=== PATIENT | female | born 1955 | race Two or more races ===

== ENCOUNTER → 2024-04-17 | Outpatient (CLI) | payer OTHER, SELFPAY ==
[2024-04-17 11:15] LABS: Collection Type, Urine Clean Catch
[2024-04-17 11:43] LABS: Basophils # (Auto) 0.1 Thou/mm3 (0.0-0.2); Basophils % (Auto) 1 % (0-2.5); Eosinophils # (Auto) 0.3 Thou/mm3 (0.0-0.5); Eosinophils % (Auto) 4 % (0-10); Hematocrit 40.4 % (36.0-46.0); Hemoglobin 13.1 g/dL (12.0-16.0); Immature Granulocytes % (Auto) 1 % (0-0); Immature Granulocytes Auto 0.04 Thou/mm3 (0.00-0.00); Lymphocytes # (Auto) 2.8 Thou/mm3 (1.0-4.8); Lymphocytes % (Auto) 32 % (10-50); Mean Corpuscular HGB Conc 32.4 g/dl (31.0-37.0); Mean Corpuscular Hemoglobin 27.8 pg (25.0-35.0); Mean Corpuscular Volume 86 fL (80-100); Monocytes # (Auto) 0.6 Thou/mm3 (0.0-0.8); Monocytes % (Auto) 7 % (0-12); Neutrophils # (Auto) 4.9 Thou/mm3 (1.8-7.7); Neutrophils % (Auto) 56 % (37-80); Nucleated Red Blood Cell % 0 /100 WBC (0); Platelet Count 399 Thou/mm3 (140-440); RDW Standard Deviation 41.9 fL (36.4-46.3); Red Blood Count 4.71 Miln/mm3 (4.00-5.20); White Blood Count 8.7 Thou/mm3 (3.6-11.0)
[2024-04-17 11:47] LABS: Creatinine MALB Rnd Ur 171 mg/dL (30-125); Microalbumin Creat Ratio 6 mg/gCrea (<30); Microalbumin, Random Urine 10 mg/L (0-300)
[2024-04-17 12:04] LABS: Bacteria,Urine 3+; Bilirubin,Urine Negative (Negative); Blood,Urine Negative (Negative); Color,Urine Yellow (Lt Yel-Yel); Glucose, Urine Negative (Negative); Hyaline Casts,Urine < 1 /hpf (0-1); Ketones,Urine Negative (Negative); Leukocyte Esterase,Urine Positive (Negative); Nitrite,Urine Positive (Negative); PH,Urine 5.5 (5.0-7.0); Protein,Urine Trace (Neg - Trace); RBC,Urine 5 /hpf (0-3); Specific Gravity,Urine 1.023 (1.001-1.035); Squamous Epithelial Cell,Urine 34 /hpf (0-5); Transitional Epi Cells,Urine 2 /hpf (0-5); Urobilinogen,Urine Negative mg/dL (0.0-1.0); WBC,Urine 67 /hpf (0-5)
[2024-04-17 12:09] LABS: Glucose Estimated Average 220 mg/dL (80-131); Hemoglobin A1C 9.3 % Hgb (4.8-6.0)
[2024-04-17 12:11] LABS: Alanine Aminotransferase 17 U/L (10-49); Albumin, Serum 4.8 gm/dL (3.4-4.8); Albumin/Globulin Ratio 2.1 (1.2-2.2); Alkaline Phosphatase 96 U/L (46-116); Anion Gap 8 (7-16); Aspartate Amino Transferase 17 U/L (0-34); BUN/Creatinine Ratio 20 Ratio (12-20); Blood Urea Nitrogen 20 mg/dL (9-23); Calcium 10.1 mg/dL (8.3-10.6); Calcium (Corrected) 10.1 mg/dL (8.5-10.1); Cardiac Risk Estimate 2.3 RATIO (3.7-5.6); Chloride 105 mMol/L (98-107); Cholesterol 154 mg/dL (132-200); Globulin 2.3 gm/dL (2.3-3.5); Glucose 197 mg/dL (74-106); HDL Cholesterol 67 mg/dL (40-60); LDL Cholesterol,Calculated 63 mg/dL (0-130); Osmolality,Calculated 285 (275-295); Potassium 5.4 mMol/L (3.4-5.1); Sodium 139 mMol/L (136-145); Total Protein 7.1 gm/dL (5.7-8.2); Triglycerides 119 mg/dL (30-150); eGFR > 60 See Note
[2024-04-17 12:17] LABS: Clarity,Urine Hazy (Clear/Hazy)
[2024-04-17 12:27] LABS: Bilirubin,Total 0.5 mg/dL (0.3-1.2)
== END | disposition home or self-care (01) ==
PROVIDERS: PCP Family Medicine; Referring Provider Family Medicine; Visit Provider Family Medicine
DX: E11.65 Type 2 diabetes mellitus with hyperglycemia (principal)
CPT/HCPCS: 36415; 80053; 80061; 81001; 82043; 82570; 83036; 85025

== ENCOUNTER → 2024-12-16 | Outpatient (CLI) | payer OTHER, SELFPAY ==
[2024-12-16 12:11] LABS: Basophils # (Auto) 0.0 Thou/mm3 (0.0-0.2); Basophils % (Auto) 0 % (0-2.5); Eosinophils # (Auto) 0.1 Thou/mm3 (0.0-0.5); Eosinophils % (Auto) 1 % (0-10); Hematocrit 44.4 % (36.0-46.0); Hemoglobin 14.3 g/dL (12.0-16.0); Immature Granulocytes Auto 0.04 Thou/mm3 (0.00-0.00); Lymphocytes # (Auto) 2.9 Thou/mm3 (1.0-4.8); Lymphocytes % (Auto) 28 % (10-50); Mean Corpuscular HGB Conc 32.2 g/dl (31.0-37.0); Mean Corpuscular Hemoglobin 28.1 pg (25.0-35.0); Mean Corpuscular Volume 87 fL (80-100); Monocytes # (Auto) 0.7 Thou/mm3 (0.0-0.8); Monocytes % (Auto) 7 % (0-12); Neutrophils # (Auto) 6.5 Thou/mm3 (1.8-7.7); Neutrophils % (Auto) 63 % (37-80); Nucleated Red Blood Cell # 0.00 Thou/mm3 (0.00-0.00); Nucleated Red Blood Cell % 0 /100 WBC (0); Platelet Count 408 Thou/mm3 (140-440); RDW Standard Deviation 42.5 fL (36.4-46.3); Red Blood Count 5.09 Miln/mm3 (4.00-5.20); White Blood Count 10.2 Thou/mm3 (3.6-11.0)
[2024-12-16 12:31] LABS: Sed Rate (ESR) 15 mm/hr (0-30)
[2024-12-16 13:35] LABS: Glucose Estimated Average 341 mg/dL (80-131); Hemoglobin A1C 13.5 % Hgb (4.8-6.0)
[2024-12-16 13:40] LABS: Alanine Aminotransferase 18 U/L (10-49); Albumin, Serum 4.7 gm/dL (3.4-4.8); Albumin/Globulin Ratio 1.7 (1.2-2.2); Alkaline Phosphatase 99 U/L (46-116); Anion Gap 15 (7-16); Aspartate Amino Transferase 21 U/L (0-34); BUN/Creatinine Ratio 14 Ratio (12-20); Bilirubin,Total 0.5 mg/dL (0.3-1.2); Blood Urea Nitrogen 14 mg/dL (9-23); Calcium 10.3 mg/dL (8.3-10.6); Calcium (Corrected) 10.3 mg/dL (8.5-10.1); Carbon Dioxide 21.5 mMol/L (20.0-31.0); Chloride 105 mMol/L (98-107); Creatinine (Component) 1.0 mg/dL (0.6-1.3); Globulin 2.7 gm/dL (2.3-3.5); Glucose 264 mg/dL (74-106); Osmolality,Calculated 290 (275-295); Potassium 4.5 mMol/L (3.4-5.1); Sodium 141 mMol/L (136-145); Total Protein 7.4 gm/dL (5.7-8.2); eGFR > 60 See Note
== END | disposition home or self-care (01) ==
LOC: COPL 10:55
PROVIDERS: PCP Family Medicine; Referring Provider Family Medicine; Visit Provider Family Medicine
DX: E11.65 Type 2 diabetes mellitus with hyperglycemia (principal)
CPT/HCPCS: 36415; 80053; 83036; 85025; 85652

== ENCOUNTER → 2025-01-14 | Outpatient (CLI) | payer OTHER, SELFPAY ==
[2025-01-14 12:40] LABS: Creatinine MALB Rnd Ur 105 mg/dL (30-125); Microalbumin Creat Ratio 7 mg/gCrea (<30); Microalbumin, Random Urine 7 mg/L (0-300)
== END | disposition home or self-care (01) ==
LOC: COPL 11:32
PROVIDERS: PCP Family Medicine; Referring Provider Family Medicine; Visit Provider Family Medicine
DX: E11.65 Type 2 diabetes mellitus with hyperglycemia (principal)
CPT/HCPCS: 82043; 82570

== ENCOUNTER 2025-04-25 22:51 | Emergency (ER) | payer OTHER, SELFPAY ==
[2025-04-25 22:52] VITALS: BMI 28.3
[2025-04-25 23:39] VITALS: BP 136/84; PULSE 135; RESP 18; TEMP 37; O2SAT 98
--- NOTE | 2025-04-25 23:39 | EKG_ITS ---
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
--- NOTE | 2025-04-25 23:44 | EDNOTE_ITS ---
ED Fall Injury RME/HPI General Chief Complaint: Fall Stated Complaint: FALL ON PLAVIX, LACERATION TO TOP LIP Time Seen by Provider: 04/26/25 00:03 Arrival date/time: 04/25/25 22:51 RME / HPI RME / HPI Narrative: See [facility] for Dr. Easton's HPI Documentation. Related Data Previous Rx's ?Medication ?Instructions ?Recorded acetaminophen 300 mg-codeine 30 mg 2 tab PO Q8H PRN pa in #20 tabs 04/26/25 tablet Allergies Allergy/AdvReac Type Severity Reaction Status Date / Time No Known Allergies Allergy Verified 04/25/25 22:52 Review of Systems Review of Systems Systems Reviewed: All systems reviewed, normal except as documented Past Medical History Past Medical History CARDIAC: Positive Cardiac Disorders (CARDIAC STENTS (9) + CABG) and Myocardial Infarction ENDOCRINE: Positive Diabetes Mellitus Type 2 Surgical History SURGICAL: Positive Coronary Artery Bypass Graft and Coronary Stent ED Exam Narrative Physical exam: See [facility] for Dr. Easton's Physical Exam Documentation. Course Quality Measures none Orders Category Date Time Status EKG (ED ONLY) *Do not use* NOW Care 04/25/25 23:39 Completed Wound Care [Wound Care] NOW Care 04/26/25 00:[address] cervical spine wo con Stat Exams 04/26/25 00:[address] facial bones wo con Stat Exams 04/26/25 00:[address] head/brain wo con Stat Exams 04/26/25 00:03 Completed EKG (ED Only) Stat Exams 04/25/25 23:39 Draft ACETAMINOPHEN w/COD 300-30 [Tylenol w/Cod #3] Med 04/26/25 00:03 Discontinued 2 tab PO X1 ONE Amoxicillin/Pot Clav 875 [Augmentin 875] Med 04/26/25 00:03 Discontinued 1 tab PO X1 ONE Bacitracin Oint pkt Med 04/26/25 00:03 Discontinued 1 gm TOP X1 ONE Lidocaine 1% Vial 20 ml [Xylocaine 1% 20 ML] Med 04/26/25 00:04 Discontinued 20 ml INFL X1 ONE TET,DIP/PERT AC (Adult)-Tdap [Boostrix Adult (Tdap) Med 04/26/25 00:03 Discontinued Vacc] 0.5 ml IMI .ONCE ONE Vital Signs Vital signs: Vital Signs Temperature 98.6 F 04/25/25 23:39 Pulse Rate 135 H 04/25/25 23:39 Respiratory Rate 18 04/25/25 23:39 Blood Pressure 136/84 H 04/25/25 23:39 Pulse Oximetry (%) 98 04/25/25 23:39 Oxygen Delivery Method Room Air 04/25/25 23:39 PROCEDURES: Laceration Laceration 1: Site: face (philtrum) Size (cm): 1.5 Description: linear Depth: simple, single layer Local Anesthetic: lidocaine 1% Amount of anesthesia used (mL): 4 Pre-repair: wound explored and irrigated extensively Skin layer closed with: nylon Suture size (cm): 4-0 Number of sutures: 3 Technique: simple, interrupted Fall MDM Narrative MDM Narrative:: This section includes all my notes and documentations, including HPI, PE, and ED course. 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 While getting up fr om her toilet, she lost her balance. She hit her lower face on the sink. No loss of consciousness. She reports wound with active bleeding above the upper lip. No headache or dizziness. No neck pain or back pain. No chest pain or abdominal pain. No pain in arms or legs. No other complaints. ROS: All negative except as documented in HPI. Physical Exam: General:? Alert and oriented.? No acute distress.? HEENT:? EOMI.? PERRL. Patent airway. Neck:? Supple.? No tenderness. Heart:? RRR. Lungs:? No respiratory distress.? Good air movement.? No rhonchi, wheezing, rales.? Chest:? No tenderness. Abdomen:? Soft and nontender.? Normal bowel sounds.? No distension.? No rebound or guarding.? Back:? No tenderness.? Skin:? Warm and dry.? In the philtrum, there is 1.5 cm horizontal full?skin thic kness laceration with active bleeding. Neuro:? Alert and oriented X 3.? Cranial Nerves II-XII grossly intact.? No peripheral motor deficits. Musculoskeletal:? All major joints and bones are not tender with no limited ROM. I reviewed all diagnostic test results: My interpretation of the EKG is: Sinus tachycardia (107 bpm) with nonspecific ST-T changes. My review of the Head/Delvin CT report is: No acute findings. My review of the Facial Bones CT report is: No acute findings. My review of the C-Spine CT report is: No acute findings. At this point, diagnoses include: Facial Laceration Facial Contusion Treatment here included: Wound care Laceration repair (see procedure note) Augmentin 875 Two Tylenol #3 Tdap Provided good wound care instructions. Based on my best medical judgment, made decision no further evaluation or treatment indicated at this time. Patient and mom understands and agrees to the discharge instructions customized and printed, see below. Discharge instructions from Dr. Easton:? -- Fortunately, there was no brain injury or broken neck or broken bone. -- Your outside laceration was repaired with 3 stitches. -- Keep the current dressing intact for 24 hours. -- After 24 hours, change the dressing once daily. -- First remove the dressing gently.? If it does not come off easily, run water through it until it comes off easily. -- Then gently wash with soap and water. -- After completely drying, apply antibiotic ointment and new dressing. -- Your inside upper lip laceration was repaired with 3 dissolvable stitches. They will dissolve on their own. -- See your doctor or return here on 04/29/2025 for suture removal.? Total of 3 outside stitches. -- Seek immediate medical care with fever, spreading redness from the wound, or with any concerns. Brent Easton MD Patient data External records reviewed:: [facility] previous records (No prior ED records available for review) Clinical information provided by:: patient Social determinants that could affect healthcare access:: none Patient has the following chronic illnesses:: Type II DM How is presenting disease/condition affected by chronic disease/condition?: exacerbated by Evaluation data The following diagnostics were reviewed and interpreted by me:: EKG tracing(s) (My interpretation of the EKG is: Sinus tachycardia (107 bpm) with nonspecific ST-T changes. Brent Easton MD) Lab and/or radiology exams considered but not ordered:: None Interpretation Summary: I reviewed all diagnostic test results: My interpretation of the EKG is: Sinus tachycardia (107 bpm) with nonspecific ST-T changes. My review of the Head/Delvin CT report is: No acute findings. My review of the Facial Bones CT report is: No acute findings. My review of the C-Spine CT report is: No acute findings. Medications / Prescriptions Medications or Prescriptions considered but not ordered:: None Medication administrations:: Medication Administration History Discontinued Medications Acetaminophen/Codeine Phosphate (Acetaminophen W/Cod 300-30 Tablet) 2 tab PO X1 ONE Stop: 04/26/25 00:04 Last Admin: 04/26/25 00:15 Dose: 2 tab Documented By: JEFE Amoxicillin/Clavulanate Potassium (Amoxicillin/Pot Clav 875 Tablet) 1 tab PO X1 ONE Stop: 04/26/25 00:04 Last Admin: 04/26/25 00:16 Dose: 1 tab Documented By: JEFE Bacitracin (Bacitracin Oint 1 Gm Packet) 1 gm TOP X1 ONE Stop: 04/26/25 00:04 Last Admin: 04/26/25 00:16 Dose: 1 gm Documented By: JEFE Diphtheria/Tetanus/Acell Pertussis (Diphth,Pertuss(Acell),Tet Vac 0.5 Ml Syr- Adult) 0.5 ml IMi .ONCE ONE Stop: 04/26/25 00:04 Last Admin: 04/26/25 00:16 Dose: 0.5 ml Documented By: JEFE Lidocaine HCl (Lidocaine Hcl 1% 20 Ml Vial) 20 ml INFL X1 ONE Stop: 04/26/25 00:05 Last Admin: 04/26/25 00:16 Dose: 20 ml Documented By: JEFE Comments: ADMIN BY PROVIDER Treatment here included: Wound care Laceration repair (see procedure note) Augmentin 875 Two Tylenol #3 Tdap Consultations Consultation(s) initiated? (list below): No Diagnosis Fall Differential Diagnosis: syncope, concussion with loss of consciousness, concussion without loss of consciousness and other (Facial fracture/laceration /contusion) Most likely diagnosis given after review of the tests above:: Facial Laceration Facial Contusion Admission Indicated Admission indicated?: not indicated Explain why admission is indicated or not indicated:: With significant improvement and no condition needing emergent intervention, there was no indication for admission. Admission Request Was there a request for admission?: No Disposition Plan Disposition Plan: Discharge Discharge Attestation Discharge Attestation: The patient and all family members were given an opportunity to ask questions and understood the discharge instructions. Discharge instructions specifically effects, indications for sooner follow up or return to the emergency department, and the expected course of current diagnosis. Patient condition: Stable Discharge Plan Plan Patient Disposition: HOME (Self Care) Prescriptions/Referrals Prescriptions/Med Rec: New acetaminophen-codeine 300-30 mg tablet 2 tab PO Q8H MDD 6 PRN (Reason: pain) Qty: 20 0RF Referrals: Davian Araujo MD [Primary Care Provider, [facility]] - In 1 week Problem List Clinical Impression: Facial laceration, Facial contusion Patient/Caregiver Discharge Instructions Discharge Activity: activity as tolerated Education Materials: ED Facial Contusion, ED Laceration, Face: Stitches or Tape Additional Instructions: Discharge instructions from Dr. Easton:? -- Fortunately, there was no brain injury or broken neck or broken bone. -- Your outside laceration was repaired with 3 stitches. -- Keep the current dressing intact for 24 hours. -- After 24 hours, change the dressing once daily. -- First remove the dressing gently.? If it does not come off easily, run water through it until it comes off easily. -- Then gently wash with soap and water. -- After completely drying, apply antibiotic ointment and new dressing. -- Your inside upper lip laceration was repaired with 3 dissolvable stitches. They will dissolve on their own. -- See your doctor or return here on 04/29/2025 for suture removal.? Total of 3 outside stitches. -- Seek immediate medical care with fever, spreading redness from the wound, or with any concerns. Print Language: Togolese Stand Alone Forms: Danae Award Info., Patient Portal Info Letter
--- NOTE | 2025-04-26 00:03 | XR_ITS ---
Examination: CT maxillofacial, without intravenous contrast. 2-D sagittal reconstructions. 3-D reconstructions. Date and time of exam: April 26, 2025, 0034 hours INDICATIONS: Patient slipped and fell today with injury to the face and facial pain CTDI: vol (mGy): 17.40 DLP: (mGycm): 326 Technique: Multiple axial images of maxillofacial region, 3.0 mm slice thickness. 2-D sagittal and coronal reconstructions. 3-D reconstructions. Low dose protocols were performed. One or more of the following dose reduction techniques were used; automated exposure control, adjustment of the mA and/or KV according to patient size, use of iterative reconstruction technique. Findings: Frontal bone frontal sinuses intact Orbital rims intact, total opacification maxillary antra No depression zygomatic arches No nasal bone fracture Pterygoid plates maxilla and the mandible intact Submental soft tissue contusion IMPRESSION: No acute facial fracture.
--- NOTE | 2025-04-26 00:03 | XR_ITS ---
Examination: CT brain head without contrast. 2-D sagittal coronal reconstructions Date and time of exam: April 26, 2025, 0030 hours INDICATIONS: Patient slipped and fell today with injury to the head, head pain CTDI: vol (mGy): 44 DLP: (mGycm): 776 Technique: Multiple CT axial sections of the brain have been obtained, 5 mm slice thickness. Contrast has not been administered. 2-D sagittal, coronal reconstructions have been obtained Low dose protocols were performed. One or more of the following dose reduction techniques were used; automated exposure control, adjustment of the mA and/or KV according to patient size, use of iterative reconstruction technique. Findings: No significant ventricular enlargement. Intra-axial or extra-axial hemorrhage density is not seen. No mass effect or midline shift Basal cisterns are not remarkable. Fourth ventricle is midline. Cranial vault intact. Prominent maxillary sinusitis Impression: Negative for acute hemorrhage, mass effect or midline shift
--- NOTE | 2025-04-26 00:03 | XR_ITS ---
Examination: CT cervical spine without contrast 2-D sagittal reconstructions 2-D coronal reconstructions 3-D reconstructions. Exam date and time: April 26, 2025, 12:32 a.m. INDICATIONS: Patient slipped and fell today with injury to the neck, neck pain CTDI:vol (mGy) 15.36 DLP: (mGycm) 322 Technique: Multiple 2 mm axial sections of the cervical spine have been obtained. The coronal and sagittal reconstructions have been obtained. 3-D reconstructions have been obtained. Low dose protocols were performed. One or more of the following dose reduction techniques were used; automated exposure control, adjustment of the mA and/or KV according to patient size, use of iterative reconstruction technique. Findings: Axial sections demonstrate intact base of the skull. C1 exhibit satisfactory relationship to the odontoid. No acute cervical vertebral body fracture seen. Alignment posterior spinous processes satisfactory. Mild to moderate degenerative disc disease C5-C6 Impression: No acute cervical fracture.
[2025-04-26] MEDS: ACETAMINOPHEN w/COD 300-30 TABLET 2 TAB PO (00:15)
[2025-04-26] MEDS: LIDOCAINE HCL 1% 20 ML VIAL INFL (00:16)
[2025-04-26] MEDS: DIPHTH,PERTUSS(ACELL),TET VAC 0.5 ML SYR- ADULT IMi (00:16)
[2025-04-26] MEDS: AMOXICILLIN/POT CLAV 875 TABLET 1 TAB PO (00:16)
[2025-04-26] MEDS: BACITRACIN OINT 1 GM PACKET TOP (00:16)
[2025-04-26 03:49] VITALS: PULSE 89; RESP 18; O2SAT 96
== END 2025-04-26 03:49 | disposition home or self-care (01) ==
PROVIDERS: Emergency Provider Emergency Medicine; PCP Family Medicine
DX: S01.511A Laceration without foreign body of lip, initial encounter (principal); S19.9XXA Unspecified injury of neck, initial encounter; S00.83XA Contusion of other part of head, initial encounter; R00.0 Tachycardia, unspecified; W01.198A Fall on same level from slipping, tripping and stumbling with subsequent striking against other object, initial encounter; Y93.89 Activity, other specified; Y92.002 Bathroom of unspecified non-institutional (private) residence as the place of occurrence of the external cause; Z23 Encounter for immunization
CPT/HCPCS: 12013; 70450; 70486; 72125; 90471; 90715; 93005; 99283; J3490; A9270